=== PATIENT | female | born 1975 | race African-American/Black ===

== ENCOUNTER 2016-06-13 13:16 | Emergency (ER) | payer BC ==
--- NOTE | 2016-06-13 13:30 | ER Document Report ---
ED Medical Screen (RME) - General Chief Complaint: Flank Pain Stated Complaint: UPPER LEFT SIDE RIB PAIN Mode of Arrival: Ambulatory Information source: Patient Notes: 40 y/o F presents to ED c/o intermittently persistent pain to left upper abd/ lower rib cage over the last week. States pain seems to be worse approximately 30mins-1hr after eating. I have greeted and performed a rapid initial assessment of this patient. A comprehensive ED assessment and evaluation of the patient, analysis of test results and completion of the medical decision making process will be conducted by additional ED providers. TRAVEL OUTSIDE OF THE [place] IN LAST 30 DAYS: No - Related Data Allergies/Adverse Reactions: No Known Allergies Allergy (Verified 06/13/16 13:22) Past Medical History - Social History Chew tobacco use (# tins/day): No Frequency of alcohol use: Rare Drug Abuse: None Neurological Medical History: Reports: Hx Migraine Renal/ Medical History: Denies: Hx Peritoneal Dialysis Traumatic Medical History: Reports: Hx Fractures - 5th digit right hand Infectious Medical History: Reports: Hx C-Diff Past Surgical History: Reports: Hx Gynecologic Surgery - novosure - Immunizations Immunizations up to date: No Hx Diphtheria, Pertussis, Tetanus Vaccination: No Physical Exam - Vital signs Vitals: Temp Pulse Resp BP Pulse Ox 98.1 F 83 16 131/82 H 100 06/13/16 13:24 06/13/16 13:24 06/13/16 13:24 06/13/16 13:24 06/13/16 13:24 - General General appearance: Appears well, Alert In distress: None - Respiratory Respiratory status: No respiratory distress Breath sounds: Normal - Cardiovascular Pulses: Normal: Radial Normal capillary refill: Yes Course - Vital Signs Vital signs: Temp Pulse Resp BP Pulse Ox 98.1 F 83 16 131/82 H 100 06/13/16 13:24 06/13/16 13:24 06/13/16 13:24 06/13/16 13:24 06/13/16 13:24
[2016-06-13 14:03] LABS: ABSOLUTE EOSINOPHILS # (AUTO) 0.2 10^3/uL (0.0-0.6); ABSOLUTE LYMPHOCYTES (AUTO) 2.1 10^3/uL (0.5-4.7); ABSOLUTE MONOCYTES (AUTO) 0.4 10^3/uL (0.1-1.4); ABSOLUTE NEUT (AUTO) 2.7 10^3/uL (1.7-8.2); BASOPHILS % (AUTO) 0.7 % (0-2); EOSINOPHILS % (AUTO) 3.6 % (0-6); HEMATOCRIT 34.2 % (36.0-47.0); HEMOGLOBIN 11.1 g/dL (12.0-15.5); HGB HCT DIFFERENCE -0.9; LYMPHOCYTES % (AUTO) 38.4 % (13-45); MEAN CORPUSCULAR HEMOGLOBIN 28.7 pg (27.0-33.4); MEAN CORPUSCULAR HGB CONC 32.5 g/dL (32.0-36.0); MEAN CORPUSCULAR VOLUME 88 fl (80-97); MONOCYTES % (AUTO) 7.8 % (3-13); RED BLOOD COUNT 3.88 10^6/uL (3.72-5.28); RED CELL DISTRIBUTION WIDTH 13.3 % (11.5-14.0); SEGMENTED NEUTROPHILS % (AUTO) 49.5 % (42-78); WHITE BLOOD COUNT 5.5 10^3/uL (4.0-10.5)
[2016-06-13 14:13] LABS: APPEARANCE,URINE CLEAR; BILIRUBIN,URINE NEGATIVE (NEGATIVE); GLUCOSE, URINE NEGATIVE (NEGATIVE); KETONES,URINE NEGATIVE (NEGATIVE); LEUKOCYTE ESTERASE,URINE NEGATIVE (NEGATIVE); NITRITE,URINE NEGATIVE (NEGATIVE); PROTEIN,URINE NEGATIVE (NEGATIVE); URINE SPECIFIC GRAVITY 1.019; UROBILINOGEN,URINE NEGATIVE mg/dL (<2.0)
[2016-06-13 14:28] LABS: ALANINE AMINOTRANSFERASE 35 U/L (9-52); ALBUMIN 4.5 g/dL (3.5-5.0); ALKALINE PHOSPHATASE 57 U/L (38-126); ANION GAP 10 (5-19); ASPARTATE AMINO TRANSFERASE 30 U/L (14-36); BILIRUBIN,TOTAL 0.4 mg/dL (0.2-1.3); BLOOD UREA NITROGEN 13 mg/dL (7-20); CALCIUM 9.6 mg/dL (8.4-10.2); CARBON DIOXIDE 24 mmol/L (22-30); CHLORIDE 107 mmol/L (98-107); CREATININE RESULT 0.99 mg/dL (0.52-1.25); GLUCOSE 81 mg/dL (75-110); LIPASE 164.8 U/L (23-300); POTASSIUM 4.6 mmol/L (3.6-5.0); SODIUM 140.8 mmol/L (137-145); TOTAL PROTEIN 7.3 g/dL (6.3-8.2)
--- NOTE | 2016-06-13 14:46 | ER Document Report ---
ED GI/ - General Chief Complaint: Flank Pain Stated Complaint: UPPER LEFT SIDE RIB PAIN Mode of Arrival: Ambulatory Information source: Patient TRAVEL OUTSIDE OF THE [place] IN LAST 30 DAYS: No - HPI Patient complains to provider of: Abdominal pain - LUQ AND LOWER L. CHEST ( COSTAL MARGIN) Onset: Last week Timing/Duration: Gradual Quality of pain: Stabbing, Other - SORENESS Severity at maximum: Moderate Severity in ED: Mild Context: denies: Bad food, Lifting, Out of the country travel, , Recent trauma Location: Chest pain - L. COSTAL MARGIN, LUQ - Related Data Allergies/Adverse Reactions: No Known Allergies Allergy (Verified 06/13/16 14:54) Past Medical History - General Information source: Patient - Social History Smoking Status: Current Some Day Smoker Chew tobacco use (# tins/day): No Frequency of alcohol use: Rare Drug Abuse: None Family History: Arthritis, CVA, DM, Hyperlipidemia, Hypertension, Malignancy Patient has suicidal ideation: No Patient has homicidal ideation: No Neurological Medical History: Reports: Hx Migraine Renal/ Medical History: Denies: Hx Peritoneal Dialysis Traumatic Medical History: Reports: Hx Fractures - 5th digit right hand Infectious Medical History: Reports: Hx C-Diff Past Surgical History: Reports: Hx Gynecologic Surgery - novosure - Immunizations Immunizations up to date: No Hx Diphtheria, Pertussis, Tetanus Vaccination: No Review of Systems - Review of Systems Constitutional: No symptoms reported. denies: Chills, Fever, Weight loss EENT: No symptoms reported Cardiovascular: No symptoms reported Respiratory: Hurts to breathe - WITH DEEP BREATH. denies: Short of breath Gastrointestinal: No symptoms reported, Nausea Genitourinary: No symptoms reported Female Genitourinary: No symptoms reported Musculoskeletal: See HPI Skin: No symptoms reported Neurological/Psychological: No symptoms reported Physical Exam - Vital signs Vitals: Temp Pulse Resp BP Pulse Ox 98.1 F 83 16 131/82 H 100 06/13/16 13:24 06/13/16 13:24 06/13/16 13:24 06/13/16 13:24 06/13/16 13:24 Interpretation: Normal - General General appearance: Appears well, Alert In distress: None - HEENT Head: Normocephalic Eyes: Normal Conjunctiva: Normal Ears: Normal Nasal: Normal Mouth/Lips: Normal Mucous membranes: Normal - Respiratory Respiratory status: No respiratory distress Chest status: Tender - SLIGHT, IN AREA OF COMPLAINT, Pain with deep breathing Breath sounds: Normal - Cardiovascular Rhythm: Regular - Abdominal Inspection: Normal Distension: No distension Bowel sounds: Normal Tenderness: Nontender Organomegaly: No: Splenomegaly - Back Back: Normal. No: CVA tenderness - Extremities General upper extremity: Normal inspection General lower extremity: Normal inspection - Neurological Neuro grossly intact: Yes Cognition: Normal - Psychological Associated symptoms: Normal affect, Normal mood - Skin Skin Temperature: Warm Skin Moisture: Dry Skin Color: Normal Skin Turgor: Elastic Course - Vital Signs Vital signs: Temp Pulse Resp BP Pulse Ox 98.1 F 83 16 131/82 H 100 06/13/16 13:24 06/13/16 13:24 06/13/16 13:24 06/13/16 13:24 06/13/16 13:24 - Laboratory Result Diagrams: 06/13/16 13:45 06/13/16 13:45 Laboratory results interpreted by me: 06/13/16 06/13/16 13:45 13:45 Hgb 11.1 L Hct 34.2 L Urine Ascorbic Acid 20 H - Diagnostic Test Radiology reviewed: Image reviewed, Reports reviewed Discharge - Discharge Clinical Impression: Muscle strain of chest wall Qualifiers: Encounter type: initial encounter Qualified Code(s): S29.011A - Strain of muscle and tendon of front wall of thorax, initial encounter Condition: Stable Disposition: HOME, SELF-CARE Instructions: Muscle Strain ([facility]), Anti-Inflammatory Medication ([facility]) Additional Instructions: TAKE DICLOFENAC DIRECTED. AVOID PAINFUL ACTIVITY. FOLLOW UP WITH YOUR PRIMARY CARE PROVIDER OR RETURN TO E.R. IF YOU GET WORSE, ANY TIME. Prescriptions: Diclofenac Sodium [Voltaren] 75 mg PO BIDP PRN #30 tablet.dr BACA Reason: For Pain
[2016-06-13 16:26] VITALS: BP 136/84
== END 2016-06-13 16:16 | disposition home or self-care (01) ==
LOC: ER 13:16
DX: S29.011A Strain of muscle and tendon of front wall of thorax, initial encounter (principal); X58.XXXA Exposure to other specified factors, initial encounter; R10.12 Left upper quadrant pain; R07.81 Pleurodynia; F17.200 Nicotine dependence, unspecified, uncomplicated
CPT/HCPCS: 36415; 71020; 80053; 81001; 81025; 83690; 85025; 99284

== ENCOUNTER 2018-04-14 20:29 | Emergency (ER) | payer BC ==
[2018-04-14 20:56] VITALS: BP 140/92
--- NOTE | 2018-04-14 22:32 | RADIOLOGY REPORT (SQ) ---
EXAM DESCRIPTION: AP and lateral soft tissue examination of the neck 04/14/2018 9:29 PM [employer] [employer] CLINICAL HISTORY: 42 years, Female, foreign body in throat- ? bone COMPARISON: FINDINGS: The airway is patent and midline There are no radiodense foreign bodies. The visualized portion of the calvarium, facial bones, and lung apices demonstrate no gross abnormalities. The bony alignment is normal. IMPRESSION: No evidence of retained radiodense foreign bodies.
[2018-04-14] MEDS ORDERED: MAG HYDROX/AL HYDROX/SIMETH SUSP 30 ML UDCUP PO ONE (23:25)
[2018-04-14] MEDS ORDERED: METOCLOPRAMIDE HCL ORAL SOLN 10 MG/10 ML UDCUP PO ONE (23:25)
[2018-04-14] MEDS ORDERED: LIDOCAINE 2% VISCOUS SOLN 20 ML UDCUP PO ONE ×2 (23:25→23:33)
--- NOTE | 2018-04-15 00:01 | ER Document Report ---
HPI - HPI Patient complains to provider of: bone scratched throat Time Seen by Provider: 04/14/18 22:44 Pain Level: 4 Context: 42-year-old female presents to the emergency department for pain in her throat after swallowing a chicken bone fragment. She says that she was frying chicken and she took a bite where it was extremely hot and she tried to cool it off by breathing in and out of her mouth. She then swallowed a bone and scratched her throat. She arrives here in pain and wanted to make sure that the bone is not stuck in her throat. She endorses pain in her throat, denies any oral guthrie, denies headache, denies any other symptoms. - EENT EENT: REPORTS: Sore Throat - bone in throat - REPRODUCTIVE LMP: jan 2006 Past Medical History - General Information source: Patient - Social History Smoking Status: Current Every Day Smoker Chew tobacco use (# tins/day): No Frequency of alcohol use: None Drug Abuse: None Family History: Arthritis, CVA, DM, Hyperlipidemia, Hypertension, Malignancy Patient has suicidal ideation: No Patient has homicidal ideation: No Neurological Medical History: Reports: Hx Migraine Renal/ Medical History: Denies: Hx Peritoneal Dialysis Traumatic Medical History: Reports: Hx Fractures - 5th digit right hand Infectious Medical History: Reports: Hx C-Diff Past Surgical History: Reports: Hx Gynecologic Surgery - novosure - Immunizations Immunizations up to date: No Hx Diphtheria, Pertussis, Tetanus Vaccination: No Vertical Provider Document - CONSTITUTIONAL Notes: Reviewed vital signs and nursing note as charted by RN. CONSTITUTIONAL: Well-appearing, well-nourished, acting appropriately for age HEAD: Normocephalic, atraumatic, no swelling EYES: PERRL, Conjunctivae clear, no drainage, EOMI, no scleral icterus ENT: no rhinorrhea, Pharynx without erythema or lesions, no tonsillar hypertrophy, airway patent, mucous membranes pink and moist NECK: Supple, no cervical lymphadenopathy, no masses CARD: Regular rate and rhythm, no murmurs, no rubs, no gallops, capillary refill < 2 seconds, symmetric pulses RESP: The lungs are clear to auscultation bilaterally, no wheezing, no rales, no rhonchi. Respiratory rate and effort are normal, normal chest excursion. No respiratory distress, no retractions, no stridor, no nasal flaring, no accessory muscle use. ABD/GI: Normal bowel sounds, non-distended, soft, non-tender, no rebound, no guarding, no palpable organomegaly EXT: Normal ROM in all joints, non-tender to palpation, no effusions, no edema SKIN: Normal color for age and race, warm, dry, good turgor, no acute lesions noted NEURO: No facial asymmetry, moves all extremities equally, motor and sensory function intact - INFECTION CONTROL TRAVEL OUTSIDE OF THE [place] IN LAST 30 DAYS: No Course - Re-evaluation Re-evalutation: 04/17/18 23:17 6-year-old female in no acute distress with concern for bone getting stuck in her throat and scratching it. Neck x-ray showed no evidence of foreign body. Most likely her pain is secondary to irritation from an esophageal abrasion. - Vital Signs Vital signs: Temp Pulse Resp BP Pulse Ox 98.4 F 65 18 140/92 H 100 04/14/18 20:51 04/14/18 20:51 04/14/18 20:51 04/14/18 20:51 04/14/18 20:51 Discharge - Discharge Clinical Impression: Esophageal abrasion Qualifiers: Encounter type: initial encounter Qualified Code(s): S27.818A - Other injury of esophagus (thoracic part), initial encounter Condition: Good Disposition: HOME, SELF-CARE Instructions: Sore Throat ([facility]) Additional Instructions: Seen in the emergency department this evening for an esophageal abrasion after swallowing a bone. It is a painful injury so we prescribed you with some viscous lidocaine. You can swallow 1 or 2 mL's prior to eating to reduce pain and make it easier to eat. Expect this injury to heal over the next couple of days. If your throat starts to swell up and you have difficulty breathing, have excessive bleeding from your throat, intractable nausea or vomiting, pass out, please immediately return to the emergency department Referrals: JENNIFER FALL, [employer] [Primary Care Provider] - Follow up as needed
== END 2018-04-15 00:16 | disposition home or self-care (01) ==
LOC: ER 20:29
DX: S27.818A Other injury of esophagus (thoracic part), initial encounter (principal); X58.XXXA Exposure to other specified factors, initial encounter; Y93.G3 Activity, cooking and baking; F17.200 Nicotine dependence, unspecified, uncomplicated
CPT/HCPCS: 99284; 70360; J3490